=== PATIENT | male | born 1990 | race Caucasian/White ===

== ENCOUNTER 2024-12-16 01:56 | Day surgery (SDC) | payer OTHER, SELFPAY ==
[2024-12-15 21:25] VITALS: BP 135/86
[2024-12-15 21:41] LABS: % Basophils 0.6 % (0-2); % Eosinophils 5.5 % (0-6); % Immature Granulocytes 0.5 % (0-0.5); % Lymphocytes 39.7 % (20.5-51.1); % Monocytes 7.1 % (1.7-9.3); % Neutrophils 46.6 % (42.2-75.2); Absolute Basophils 0.1 10^3/uL (0-0.2); Absolute Eosinophils 0.5 10^3/uL (0-0.7); Absolute Lymphocytes 3.5 10^3/uL (1.2-3.4); Absolute Monocytes 0.6 10^3/uL (0.1-0.6); Absolute Neutrophils 4.1 10^3/uL (1.4-6.5); Hematocrit 44.3 % (39.0-52.0); Hemoglobin 16.1 g/dL (13.0-18.0); Mean Corp Hgb Conc. 36.3 g/dL (33.0-37.0); Mean Corpuscular Volume 82.6 fL (80.0-94.0); Mean Platelet Volume 9.3 fL (7.4-10.4); Nucleated Red Blood Cells % 0 % (-); Platelet Count 212 10^3/uL (130-400); Red Blood Cell Count 5.36 10^6/uL (4.70-6.10); White Blood Cell Count 8.7 10^3/uL (4.8-10.8)
[2024-12-15 21:55] LABS: ALT (SGPT) 28 U/L (0-50); AST (SGOT) 24 U/L (17-59); Albumin 4.9 g/dl (3.5-5.0); Alkaline Phosphatase 39 U/L (38-126); Blood Urea Nitrogen 18 mg/dl (9-20); Calcium 9.5 mg/dl (8.4-10.2); Carbon Dioxide 23 mmol/L (22-30); Chloride 106 mmol/L (98-107); Glucose 90 mg/dl (70-99); Lipase 98 U/L (23-300); Potassium 3.8 mmol/L (3.5-5.1); Sodium 139 mmol/L (135-145); Total Bilirubin 0.6 mg/dl (0.2-1.3); Total Protein 7.3 g/dl (6.3-8.2); eGFR > 60.00
[2024-12-15 21:57] LABS: Urine Albumin Negative (Neg - Trace); Urine Bilirubin Negative (Negative); Urine Character Clear (Clear); Urine Color Yellow; Urine Glucose Negative (Negative); Urine Ketone Negative (Negative); Urine Leukocyte Negative (Negative); Urine Nitrite Negative (Negative); Urine Occult Blood 1+ (Negative); Urine Specific Gravity 1.025 (<1.030); Urine Urobilinogen Negative (Neg - 1+)
[2024-12-15 22:37] LABS: Urine White Cell 0-2 /HPF (0-5)
--- NOTE | 2024-12-15 22:52 | EDRN ---
Pt ate pizza and drank 2-3 beers tonight. Pt complains of pain R abdomen that is constant, sometimes radiates into b/l back. Pain started around and is sharp, shooting, pressure, aching. Pt took Tums at home that did not help. Nausea no
vomiting. Pt has had chills. No cp, sob, fever/cough, urinary symptoms.
[2024-12-15 23:01] VITALS: BMI 30.8
[2024-12-15] MEDS: ZOFRAN 4 MG IV (23:04)
[2024-12-15] MEDS: NSS 1000 IV (23:04)
[2024-12-15] MEDS: TORADOL 30 MG IV (23:06)
[2024-12-16] VITALS (17 sets, daily range): BP systolic 115–148; BP diastolic 58–84; BMI 30.7
--- NOTE | 2024-12-16 00:35 | ED.GENMED ---
History of Present Illness
General
Chief Complaint: Abdominal Pain
Source: patient
Exam Limitations: none
Time Seen by Provider: 12/15/24 23:53
Nursing documentation reviewed up to this point in time: agreed with
History of Present Illness
History of Present Illness:
Patient is a 34-year-old male who presents the emergency department for evaluation of abdominal pain. Patient states he was hanging out at his home when he began to have generalized abdominal pain around 8 PM tonight shortly followed by sharp,
stabbing pains in his right lower abdomen. He reports some radiation of pain into his lower back and groin. He states pain was 10/10 in severity prompting visit to the emergency department. Patient denies any fever or chills. No nausea or
vomiting. He does report a few episodes of diarrhea today. He denies any dysuria or hematuria.
Patient does report pizza and drinking a few beers prior to onset of symptoms around .
Earlier today he says he felt at his baseline had a normal appetite.
Review of Systems
Review of Systems
Allergies reviewed?: Yes
All Other Systems: ROS reviewed and negative except as documented in HPI and ROS
Phy Exam
Physical Exam
Physical Exam:
Vitals: Patient's vital signs are stable. Afebrile
General: Patient is well appearing, no acute distress. Nontoxic appearing
Skin: Warm and dry, no rashes or lesions
Head: Normocephalic, atraumatic
Eyes: Sclera nonicteric.
Throat: Protecting airway
Neck: Normal ROM, no cervical spine tenderness, no meningismus
Cardiac: Regular rate and rhythm, no murmurs.
Pulm: Normal respiratory effort, no wheezes, rales, rhonchi heard on exam
.
Abdomen: Abdomen soft. Mild tenderness in right mid abdomen/right lower quadrant. No rebound tenderness or guarding. Negative Ceja sign.
Extremities: No evidence of cyanosis or edema. DP pulses palpable bilaterally
Neuro: AAOx3. Grossly intact
Psychiatric: Normal affect.
Course
Orders/Labs/Results
Orders:
Orders
12/15/24 21:33
Complete Blood Count/With Diff Urgent
Comprehensive Metabolic Panel Urgent
Lipase Urgent
12/15/24 21:44
Urinalysis Reflex To Culture Urgent
Date Specimen was Collected: 12/15/24
Time Specimen was Collected: 21:24
Urine Microscopic Reflex Cult Urgent
12/15/24 22:56
Ketorolac [Toradol] 30 mg .ROUTE .STK-MED ONE
Ondansetron Injectable [Zofran] 4 mg .ROUTE .STK-MED ONE
12/15/24 22:57
CT Abd/Pel (IV only)-DH only Urgent
Comment:
Reason For Exam: R upper and R lower abdominal pain
12/15/24 22:58
0.9% Sodium Chloride 1000 ml [Nss] 1,000 ml IV BOLUS
Ketorolac [Toradol] 30 mg IV NOW STA
Ondansetron Injectable [Zofran] 4 mg IV NOW STA
12/16/24 00:34
Piperacillin/Tazo 3.375 Gram [Zosyn] 3.375 gram in 50 ml IV NOW
12/16/24 01:27
Admit/Transfer Patient As Directed
Co-Sign Provider:
Level of Care: Observation services
Assign to:: Medical/Surgical
Physician / Group: Stanford Correa/ Colorectal [facility]geralonso
Diagnosis: Acute Appendicitis
12/16/24 01:30
PRN Pain Medication Management As Directed
May give lesser potent ordered pain med per pt: Yes
preference::
Protocol:: Medication orders for pain may be administered in a
manner that supports deferring to patient preference
when the pt is:
- Requesting an ordered lesser potent pain medication.
Least to most potent pain medications are defined
as: acetaminophen < NSAID < tramadol < opioids
(morphine, oxycodone, hydromorphone).
- Requesting a lesser dose of the same medication IF
ORDERED.
- Requesting a less intrusive route of administration
if both routes are prescribed by the provider (PO <
IV).
12/16/24 01:31
Code Status As Directed
Resuscitation Status: Full Code
12/16/24 01:52
Acetaminophen 1000MG/100Ml [Ofirmev] 1,000 mg in 100 ml IV ONCE
Acetaminophen IV Indication:: Targeted Temp Management
12/16/24 03:00
HYDROmorphone [Dilaudid] 0.5 mg IV Q2HPRN PRN
Ondansetron Injectable [Zofran] 4 mg IV Q6HPRN PRN
12/16/24 03:00
Activity As Directed
Activity Level: Out of Bed-Early Mobility
Anti-embolism (CARLOS) Hose As Directed
Type: Thigh high
Anti-embolism (CARLOS) Hose As Directed
Type: Thigh high
Intake/ Output As Directed
Frequency: Per unit guidelines
Pneumatic Compression Sleeves As Directed
Type: Thigh high
Vital Signs As Directed
Frequency: Per unit guidelines
DX Deep Vein Thrombosis Video Routine
12/16/24 Breakfast
NPO
Allow oral meds: No
Allow clear liquids: No
NPO with Ice Chips: No
Piperacillin/Tazo 3.375 Gram [Zosyn] 3.375 gram in 50 ml IV Q6H
Abnormal Lab Results
12/15/24 12/15/24
21:33 21:44
Absolute Lymphs (auto) 3.5 H 10^3/uL
(1.2-3.4)
Ur Occult Blood Reflex 1+ A
(Negative)
Urine RBC 3-6 A /HPF
(0-2)
12/15/24 21:33
12/15/24 21:33
Vital Signs
Initial and Last Documented VS:
Initial Vital Signs
Temp Pulse Resp BP Pulse Ox
98.4 F 74 22 135/86 98
12/15/24 21:25 12/15/24 21:25 12/15/24 21:25 12/15/24 21:12/15/24 21:25
Last Documented Vital Signs
Temp Pulse Resp BP Pulse Ox
99.0 F 55 17 135/70 97
12/16/24 03:00 12/16/24 03:00 12/16/24 03:00 12/16/24 03:00 12/16/24 03:20
MDM/Problems Addressed
Differential Diagnosis Includes:
Not limited to: Acute appendicitis, mesenteric adenitis, constipation, biliary colic, acute cholecystitis, renal colic, UTI, testicular torsion etc.
MDM/Problems Addressed:
34-year-old male presenting with relatively acute onset right lower abdominal pain this evening around 830. This did occur following a meal of pizza however was not associated with any nausea, vomiting. He has no reports of fever or urinary
symptoms. Patient mildly hypertensive on arrival to ED with otherwise stable vital signs. He was reportedly in a significant amount of pain in triage and did receive IV fluids, Toradol, and Zofran while waiting. Per my assessment�his pain has
improved significantly however he still has some tenderness in right mid abdomen/right lower quadrant. No rebound tenderness or guarding. He has no CVA tenderness or rash. Cardio/pulmonary assessment unremarkable. Differential broad however
given acute onset nature�considered renal colic, biliary colic, muscle strain. Other considerations include infectious processes including appendicitis, pyelonephritis, diverticulitis, etc.
Labs were sent prior to my evaluation without any clinically significant abnormalities on CBC or chemistry. No leukocytosis, LFT elevation. There were a few RBCs UA although no evidence of infection. Will check CT scan abdomen/pelvis for further
evaluation. Patient declines any further analgesia at this time
Update: CT scan reveals acute appendicitis without evidence of perforation or abscess. Discussed with patient at bedside. IV Zosyn initiated in ED. Case discussed with general surgeon on-call, Dr. Correa�patient will be admitted to general surgery
service with plan to keep n.p.o. for likely OR tomorrow. Patient and patient's comfortable with this plan. Patient excepted to general surgery service in stable condition.
Chronic conditions affecting care:
N/A
Acute Exacerbation and/or Progression of Chronic Illness:
N/A
*Radiology
Radiology exam reviewed: radiology read reviewed
*Pulse Oximetry
SaO2: 97
Oxygen Mode of Delivery: Room air
Patient hypoxic: no
*EKG
Interpreted by ED Provider?: NA
*Licensed Psychologist Manager Interpretation
Rate: Licensed Psychologist Manager- N/A
*Critical Care Note
Total Time (30-74mins, 75-104mins- exclusive of procedures): Not Applicable
Patient Management
Discussion with other providers: Chiller Hand (Case discussed with general surgery)
Escalation/DeEscalation of care consider admission/obs:
Admit for IV antibiotics, OR tomorrow
ED Attending Note
-
Portions of this chart may have been created with voice recognition software.� Occasional wrong word or��sound alike� substitutions may have occurred due to the inherent limitations of voice recognition software.
Discharge Plan
Departure
Patient Disposition: Admit
Date of Disposition: 12/16/24
Time of Disposition: 00:45
Admit to doctor: Dr. Correa
Presentation/result/management discussed w/ accepting MD/DO: General Surgery
Discharge Problem:
Acute appendicitis
Interventions
Interventions:
*Risk Screen - Suicide Last Done: 12/15/24 21:25
*General Assessment Last Done: 12/15/24 21:25
*Neglect/Abuse Screening Last Done: 12/15/24 21:25
*ED- Fall Risk Assessment Last Done: 12/15/24 23:03
*Nursing Disposition Last Done: 12/16/24 02:57
[facility]-Lcdytj-Nftmevhbog Assessment Last Done: 12/15/24 22:50
Discharge Date and Time
Discharge Date/Time: 12/16/24 02:57
[2024-12-16] MEDS: ZOSYN 50 IV ×2 (00:37→05:14)
[2024-12-16] MEDS: OFIRMEV 100 IV (02:04)
--- NOTE | 2024-12-16 03:29 | HPS.HSE ---
Addendum entered and electronically signed by Feroz Correa MD 12/16/24 10:58:
34-year-old healthy male presents with 1 day of progressively worsening RLQ abdominal pain, WBC normal, CT scan showing appendix dilated to 1.3 cm with stranding, consistent with acute appendicitis
AFVSS, ABD soft, nondistended, tender in the RLQ, no rebound or guarding
� Acute appendicitis; discussed treatment options including nonoperative management versus appendectomy, reviewed the risks with each and patient agreeable with surgery
�Keep n.p.o. with IVF at 125
�Pain control with Tylenol, Toradol, Dilaudid as needed
�IV Zosyn until surgery
�DVT PPx with Lovenox
� Okay for OOB, encourage IS
Original Note:
Family Physician
-
Family Physician: Raheem Epps
Chief Complaint
-
abdominal pain
History of Present Illness
This is a very pleasant 34 year old male who came to the ED after sudden on set of vague abdominal pain about 1 hour after eating dinner of a couple beers and some pizza. The pain quickly escalated to sharp stabbing pain radiating to his back and
groin areas. Nothing made this feel better or worse. No CP, SOB, n/v, or dysuria. He had some loose stools throught the day. He came to the ED because of the worsening pain. He takes no medications on a regular basis and has no significant PMH or
PSH.
Medical History
Past Medical History
Past Medical History: Reports None, Asthma (childhood asthma) and Other (chronic sinusitis)
Past Surgical History: Reports Other (multiple sinus surgeries with multiple sinus polyp removals)
Social History
Tobacco: Non-smoker
Alcohol: None
Drug: None
Personal:
Living: With Family
Employment: Employed
Family History
Family History: Not pertinent
Allergies / Home Medications
Allergies reflects when Allergies were last updated in [facility].
Home Medications with original date entered in [facility]
Allergy/Medication List:
Allergies
Allergy/AdvReac Type Severity Reaction Status Date / Time
No Known Allergies Allergy Verified 12/15/24 21:28
Home Medications
No Meds [No Current Medications] 12/15/24
Review of Systems
-
History Source: Patient and Coordinated Provider
A 12 point ROS was completed and negative except as noted: No
Constitutional: Reports No Symptoms
EENT: Reports No Symptoms
Respiratory: Reports No Symptoms
Cardiac: Reports No Symptoms
Abdomen/GI: Reports Abdominal Pain and Nausea
: Reports No Symptoms
Musculoskeletal: Reports No Symptoms
Skin: Reports No Symptoms
Neurological: Reports No Symptoms
Endocrine: Reports No Symptoms
Hematologic/Lymphatic: Reports No Symptoms
Psych: Reports No Symptoms
Physical Exam
Vital Signs
Vital Signs
Temp Pulse Resp BP Pulse Ox
98.9 F 64 14 119/66 97
12/16/24 02:11 12/16/24 02:11 12/16/24 02:11 12/16/24 02:11 12/16/24 03:20
Physical Exam
General: Well Developed, Well Nourished, No Apparent Distress and Conversant
HEENT: NormoCephalic, Moist mucous membranes and Atraumatic
Respiratory: Clear and Non Labored Respirations
Cardiac: S1/S2 and Regular Rhythm
GI: Tender and Distended
Rectal: Deferred by Provider
Genito-urinary: Clear Urine
Musculoskeletal: No Clubbing, No Cyanosis and No Edema
Skin: Warm and Dry
Neuro: Awake, Alert, Oriented, AO x 3 and No Motor Deficits
Psych: Calm
Laboratory Results
-
12/15/24 21:33
12/15/24 21:33
Laboratory Results
Total Bilirubin 0.6 mg/dl (0.2-1.3) 12/15/24 21:33
AST 24 U/L (17-59) 12/15/24 21:33
ALT 28 U/L (0-50) 12/15/24 21:33
Alkaline Phosphatase 39 U/L (38-126) 12/15/24 21:33
Lipase 98 U/L (23-300) 12/15/24 21:33
Data Reviewed
-
CT Scan: Report Reviewed by me
Lab Data: Labs Reviewed by me
Old Records: Reviewed
Impression/Plan
-
IMPRESSION: appendicitis
PLAN: This is a very pleasant 34 year old male who came to the ED after sudden on set of vague abdominal pain about 1 hour after eating dinner of a couple beers and some pizza. The pain quickly escalated to sharp stabbing pain radiating to his
back and groin areas. Nothing made this feel better or worse. No CP, SOB, n/v, or dysuria. He had some loose stools throught the day. He came to the ED because of the worsening pain. He takes no medications on a regular basis and has no
significant PMH or PSH.
*Acute appendicitis: Zosyn, Compazine, Pain control. Prefers non-narcotics if possible.
*DVT prophylaxis: SCDs, TEDS, oob ad deandre
*Disposition: [facility] Colorectal surgery/Dr. Feroz Correa
[2024-12-16] MEDS: DILAUDID 0.5 MG IV ×2 (03:52→08:57)
[2024-12-16] MEDS: ZOFRAN 4 MG IV ×2 (03:54→21:43)
--- NOTE | 2024-12-16 04:22 | PTCARENOTE ---
Pt arrived 0300 from ED. Pt was able to ambulate into room. VSS. Pt oriented to room and call woodard. bed locked and in lowest position. call woodard with in reach.
[2024-12-16] MEDS: LR 1000 IV ×2 (09:01→21:39)
--- NOTE | 2024-12-16 12:39 | W.IMMPOSTOP ---
Surgical Immed Post Op Note
-
Primary Surgeon: Feroz Correa MD
Assisting Surgeon: BURT Gaitan, PLAYERS ASSISTANT
Pre-op Diagnosis: Acute appendicitis
Post-op Diagnosis: Acute non-perforated appendicitis
Procedure Performed: Laparoscopic appendectomy
Anesthesia Type: General
Specimen / Cultures: Appendix
Estimated Blood Loss: 10 mL
Complications: None
Operative Findings: Dilated and inflamed appendix with nearby inflammatory adhesions to the RLQ; stapled across the base with a 45 [place] with a purple load; placed 4 clips at the staple line for hemostasis
--- NOTE | 2024-12-16 12:42 | OR.RPT ---
Operative Report
Operative Report
DATE OF OPERATION: 12/16/2024
SURGEON: Feroz Correa MD
PREOPERATIVE DIAGNOSIS: Acute appendicitis
POSTOPERATIVE DIAGNOSIS: Acute non-perforated appendicitis
OPERATION: Laparoscopic appendectomy
ASSISTANTS:
1. Phyllis Montero NP
ANESTHESIA: General
ESTIMATED BLOOD LOSS: 10 mL
FINDINGS:
1. Appendix appeared dilated and inflamed, no evidence of perforation
SPECIMENS:
1. Appendix
DRAINS: None
COMPLICATIONS: No immediate complications.
INDICATIONS: The patient is a 34-year-old male who presented with 1 day of right lower quadrant abdominal pain. His WBC was normal, but his CT showed a dilated and inflamed appendix up to 1.3 cm, consistent with acute appendicitis. Therefore, I
recommended appendectomy. The operation was discussed with the patient in detail, including the risks, benefits and alternatives. Risks described included, but not limited to, bleeding, infection, damage to nearby structures (i.e., bowel, bladder,
epigastric vessels), more extensive resection than anticipated, conversion to open, and anesthetic risks. The patient understood and agreed to proceed. The consent was signed and placed in the chart.
PROCEDURE IN DETAIL: The patient was taken to the operating room and placed on the operating table in supine position. Sequential compression devices were placed bilaterally. General anesthesia was induced and the patient was intubated without
complication. The patient was secured to the bed with the right arm secured to the armboard and the left arm tucked. IV Zosyn was recently given on the floor. The abdomen was prepped and draped in the usual sterile fashion. A time-out was performed
verifying the correct patient, procedure, operative site, positioning, and special equipment.
An 11 blade scalpel was used to make a curvilinear infraumbilical incision about 1.5 cm in length. This was taken down to the level of the fascia using Bovie electrocautery and blunt dissection. The fascia was grasped with Alphonso clamps and
elevated. A 15 blade was used to incise the fascia. A Peggy clamp was introduced and used to spread the fascia. I probed with a hemostat and felt the peritoneum give way. I confirmed intra-abdominal entry with my finger. I placed a 12 mm
balloon�tipped Neil trocar and insufflated the balloon. However, upon insertion of the laparoscope, it appeared that I was still above the layer of the peritoneum. I attempted to identify intra-abdominal entry with my finger once again, but I
was unable to identify the hole in the peritoneum. I switched to Veress entry technique. I made a samanta in the skin at Peralta's point with an 11 blade scalpel. The Veress needle was used to obtain abdominal access. After 3 clicks, the
insufflation was connected and the opening pressure was less than 8 mmHg. The abdomen was insufflated to a pressure of 15 mmHg. The patient tolerated insufflation well. Using a 5 mm trocar with Optiview technique, I entered the abdomen. The
abdomen was explored and no injury was identified from initial entry or from the Veress needle. The Veress needle was removed. The appendix was not initially visualized. I placed a 5 mm trocar in the left lower quadrant under direct
visualization, taking care to avoid injury to the epigastric vessels. I placed the laparoscope through the LLQ port. Under direct visualization I switched the umbilical 5 mm trocar to a 12 mm Neil balloon�tipped trocar and inflated the balloon
with 20 mL of saline. I switched to the 10�30 camera. I placed the suprapubic 5 mm trocar under direct visualization, taking care to avoid injury to the bladder. The patient was placed in Trendelenburg with the right side up.
Two atraumatic graspers were used to sweep the small bowel to the left upper quadrant and identify the cecum, terminal ileum and appendix. The appendix was inflamed and dilated and adherent to the right sidewall of the right lower quadrant. Using
the [place] LigaSure, these adhesions were freed from the right lower quadrant, taking care to avoid injury to the right ureter. The appendix was mobilized and there was no evidence of perforation. There was a light green tinge to the ascites in
the area, but no obvious pus. The appendix was grasped and elevated to expose the base. Using gentle and meticulous blunt dissection, a hole in the mesoappendix was created at the base of the appendix. I serially ligated the mesoappendix with the
[place]oy[place] LigaSure. I switched to the 5-30 laparoscope and divided the appendix using the 45mm laparoscopic linear cutting stapler with a purple load. The appendix was placed in an Endocatch bag and placed to the side.
The right lower quadrant was suctioned. 2 spots on the staple line were noted to be oozing and four 5 mm clips were placed. Hemostasis was confirmed. There was a small hematoma on the retroperitoneum in the area of the lateral attachments to the
cecum, just adjacent to the cecum. This was only about 1 cm in size and was not expanding. On close inspection, there was no full-thickness injury to the peritoneum, so I was not concerned for injury to the cecum. Therefore, I left this alone.
The mesoappendix was evaluated and was hemostatic. Attention was turned to the pelvis and this was suctioned of clear serous fluid. Next, the suprapubic port and LLQ port were removed under direct visualization, no bleeding was noted. The balloon
port of the Neil trocar was deflated, the trocar removed and the appendix extracted without difficulty. The appendix was passed off as specimen. The abdomen was allowed to collapse. The fascia at the infraumbilical port site was closed with a
0-Vicryl stitch in a eguhdm-wz-igbom fashion. The skin of the ports were closed with 4-0 Monocryl in subcuticular fashion. The incisions were injected with a total of 30 mL of 0.25% Marcaine with epinephrine and 0.3 mg of dexamethasone. Dermabond
was used for dressing.
At this point, the procedure was complete. The patient was awoken and extubated without complication. All needle, sponge and instrument counts were reported as correct. The patient tolerated the procedure well and was transferred to the recovery
room in stable condition.
Of note, Phyllis Montero NP, podiatric assistant, was necessary during this procedure for traction, countertraction, and exploratory purposes. I was present for the entire duration of the case.
DICTATED BY: Feroz Correa MD
[2024-12-16] MEDS: ZOSYN IV (13:36)
--- NOTE | 2024-12-16 14:15 | PTCARENOTE ---
Pt received from the PACU via bed. Transport was w/o incident. Pt is Awake, drowsy, and w/ nausea and vomiting. Pt vomiting bile at this time. Surgical SUPPLY CHAIN DESIGN MANAGER notified and order received for Compazine IV. Will medicate for n/v as ordered. Pt denies
pain. VSS, Pt is afebrile. Pt's abd with 3 lap sites and one poke site all well approximated w/ surgical glue. No drainage noted at this time. Pt and Pt's parents instructed on plan of care. Call woodard is with reach.
[2024-12-16] MEDS: TORADOL 15 MG IV ×2 (14:49→20:22)
[2024-12-16] MEDS: COMPAZINE 10 MG IV (14:57)
--- NOTE | 2024-12-16 15:30 | PTCARENOTE ---
Pt's vomiting has stopped post Compazine and he is sleeping quietly at present.
[2024-12-16] MEDS: TYLENOL 1000 MG PO (18:42)
[2024-12-16] MEDS: LR IV (23:15)
[2024-12-17] MEDS: TYLENOL 1000 MG PO ×2 (00:08→06:04)
[2024-12-17] MEDS: TORADOL 15 MG IV ×2 (00:09→06:04)
[2024-12-17 03:20] VITALS: BP 105/53
[2024-12-17] MEDS: LR 1000 IV (05:18)
[2024-12-17 08:14] VITALS: BP 111/63
--- NOTE | 2024-12-17 11:38 | W.PN.GS2 ---
Addendum entered and electronically signed by Feroz Correa MD 12/18/24 00:10:
Delayed entry. I saw and examined the patient the morning of 12/17/2024.
The RETREADER's note was reviewed and I agree with the note.
Original Note:
Today's Communication / Plan
-
Dispo planning
Assessment / Plan
-
34 yo male presenting with acute appendicitis now POD #1 lap appendectomy
AFVSS
N/V immediately s/p anesthesia which has now resolved
Tolerating diet
Following expected post operative course
Plan:
Continue regular diet as tolerated
Multimodal analgesics
Ok to d/c IVF
OOB/Ambulate
Discharge to home
Subjective Data
-
Date of Service: December 17, 2024
Pt seen and examined at bedside with Dr Correa. Denies n/v today. Pain minimal at incisions. Voiding well. Passing flatus. Tolerating diet.
Objective Data
-
Intake and Output
12/16/24 12/17/24 12/18/24
06:59 06:59 06:59
Intake Total 50 / 50 2320 / 2320
Output Total 150 / 150
Balance 50 / 50 2170 / 2170
Intake:
Oral fluids 720 / 720
IV fluids (Total) 1600 / 1600
NORMOSOL 100 / 100
IV piggybacks 50 / 50
Output:
Urine, Voided 150 / 150
Other:
Number of approximated MODERATE 1 1
amounts of urine
Number of approximated LARGE 1
amounts of urine
Vital Signs
Temp Pulse Resp BP Pulse Ox
97.8 F 64 16 111/63 97
12/17/24 08:14 12/17/24 08:14 12/17/24 08:14 12/17/24 08:14 12/17/24 08:14
Lab Results
12/15/24 21:
12/15/24 21:
Calcium 9.5 mg/dl (8.4-10.2) 12/15/24:
Total Bilirubin 0.6 mg/dl (0.2-1.3) 12/15/24:
AST 24 U/L (17-59) 12/15/24:
ALT 28 U/L (0-50) 12/15/24:
Alkaline Phosphatase 39 U/L (38-126) 12/15/24:
Total Protein 7.3 g/dl (6.3-8.2) 12/15/24:
Albumin 4.9 g/dl (3.5-5.0) 12/15/24:
Physical Exam
-
NAD
ABD soft, nd, minimal incisional tenderness
Incisions with intact glue, well approximated, no erythema, scattered ecchymosis
Patient has a jay catheter: No
Patient has a central line: No
[2024-12-17 11:44] VITALS: BP 115/63
--- NOTE | 2024-12-17 12:29 | CM ---
Pt discharged prior to CM meeting with him
Per chart review, no dc needs noted
Admission order changed from OBS to post surgical recovery
== END 2024-12-17 12:15 | disposition home or self-care (01) ==
LOC: PACU 01:56
PROVIDERS: Student in an Organized Health Care Education/Training Program; ATTENDING PHYSICIAN Surgery; EMERGENCY PHYSICIAN Emergency Medicine; FAMILY PHYSICIAN Family Medicine
DX: K35.80 Unspecified acute appendicitis (principal)
CPT/HCPCS: 44970; 88304; 74177; 80053; 81003; 81015; 83690; 85025; 96361; 96365; 96375; 99284; C1776; Q9967